=== PATIENT | female | born 1980 | race Caucasian/White ===

== ENCOUNTER 2016-08-21 15:23 | Emergency (ER) | payer BC ==
[2016-08-21 15:41] VITALS: BP 118/88
[2016-08-21] MEDS ORDERED: NAPROXEN SODIUM 550 MG TABLET PO ONE (16:31)
[2016-08-21] MEDS ORDERED: NAPROXEN SODIUM 550 MG TABLET ONE (16:38)
--- OUTSIDE RECORDS SUMMARY | 2016-08-21 16:40 | XMS REPORT | Continuity of Care Document ---
:1980 Author Organization [facility] ([facility]) Address [address] [place] [address] Phone [phone] Care Team Providers Name Role Phone Provider, No-Primary Care Primary Care Provider Unavailable Source Comments This disclosure is being made pursuant to the Care Everywhere program, applicable federal and state laws, and may not contain all informaitonavailable regarding this patient.[facility] ([facility]) Active Allergies and Adverse Reactions Allergen Noted Date Severity Reactions Comments Penicillins 03/10/2011 High Anaphylaxis Current Medications Prescription Sig. Disp. Refills Start Date End Date Status OXYCODONE Take by mouth. Active HCL/ACETAMINOPHEN (PERCOCET PO) oxyCODONE-acetaminophen Take 1-2 Tabs by 20 Tab 0 03/10/2011 Active 5-325 mg per tablet mouth every 6 hours as needed. Indications: Pain Active Problems Problem Noted Date Incisional pain 03/10/2011 Social History Tobacco Use Types Packs/Day Years Used Date Never Assessed Last Filed Vital Signs Vital Sign Reading Time Taken Blood Pressure 137/86 03/10/2011 6:51 PM DATA ENTRY ANALYST Pulse 123 03/10/2011 6:51 PM DATA ENTRY ANALYST Temperature 37.7 C (99.9 F) 03/10/2011 6:51 PM DATA ENTRY ANALYST Respiratory Rate 20 03/10/2011 6:51 PM DATA ENTRY ANALYST Height 1.803 m (5' 11") 03/10/2011 6:51 PM DATA ENTRY ANALYST Weight 104.327 kg (230 lb) 03/10/2011 6:51 PM DATA ENTRY ANALYST Body Mass Index 32.09 03/10/2011 6:51 PM DATA ENTRY ANALYST Oxygen Saturation 98% 03/10/2011 6:51 PM DATA ENTRY ANALYST Plan of Care Health Maintenance Due Date Last Done Comments Hepatitis B Vaccine (1 of 3 - Primary Series) 1980 Tdap Vaccine 07/15/1991 Lipid Disorder Screening 1998 MMR Vaccine 1998 Td Vaccine 1998 Varicella Vaccine (1 of 2 - Adult - No Evidence of 1998 Immunity) Cervical Cancer Screening 2010 Influenza Vaccine: Seasonal (#1) 11/02/2015 Results from Last 3 Months Not on file
--- NOTE | 2016-08-21 16:42 | ERNOTE ---
Back Pain ER HPI Time Seen by Provider: 08/21/16 16:21 Source: patient Exam Limitations: no limitations Immunizations: IMMUNIZATION HX Immunizations Up to Date Yes History of Influenza Vaccine No Allergies/Adverse Reactions: Allergies Penicillins Allergy (Verified 08/21/16 15:36) Anaphylaxis Home Medications: HOME MEDICATIONS Cyclobenzaprine HCl [Flexeril] 10 mg PO TID PRN #30 tab 08/21/16 [Last Taken Unknown] Hydrochlorothiazide [Hydrodiuril] 25 mg PO DAILY 08/21/16 [Last Taken Unknown] Lisinopril [Zestril] 10 mg PO DAILY 08/21/16 [Last Taken Unknown] Naproxen [Naprosyn] 500 mg PO BID #40 tablet 08/21/16 [Last Taken Unknown] Pregabalin [Lyrica] 100 mg PO BID 08/21/16 [Last Taken Unknown] Sertraline HCl [Zoloft] 75 mg PO DAILY 08/21/16 [Last Taken Unknown] Narrative: Patient has neck pain for a couple of days, denies any injury. She has similar pain in 03/2016 after she jerked her neck in a near fall, had xray done in [facility], was treated with pain meds and muscle relaxant and the pain resolved after a few weeks. No injury this time, ibuprofen 400mg is helping some, no other symptoms or neuro deficit. Occasionally the pain shoots into her left arm Timing: Reports: constant Quality/Severity: Reports: moderate Recent Injury?: Reports: no Modifying Factors - (Worsens): Reports: movement to left Review of Systems - Review of Systems Constitutional: Absent: recent illness, fever EYE: Absent: double vision Respiratory: Absent: shortness of breath Cardiology: Absent: chest pain Gastrointestinal/Abdominal: Absent: nausea, vomiting, abdominal pain Genitourinary: Present: no symptoms reported Musculoskeletal: Present: See HPI, neck pain Neurological: Absent: headache, weakness, numbness - Patient's Past Medical History Patient History - Medical: Anxiety, Depression Patient History - Cardiac/Respiratory: Asthma, Hypertension Patient History - Cancer: No Hx of Cancer Patient History - Surgical Procedures: Back Surgery - Social History Living Situations: home Psych History: Hx of Anxiety, Hx of Depression Smoking Status: Current every day smoker Alcohol Use: rarely Drug Use: none - Immunizations Immunizations Up to Date: Yes History of Influenza Vaccine: No Physical Exam - Physical Exam General Appearance: Present: wd/wn, alert, no apparent distress Eye Exam: Normal inspection: bilateral Neck: Present: normal inspection, tender posterior midline, other - decreased range of motion Respiratory: Present: no respiratory distress, normal breath sounds, no accessory muscle use Cardiovascular/Chest: Present: regular rate, rhythm, no murmur Neurological Exam: Present: alert, oriented, normal mood/affect, no motor/ sensory deficits DTR: N=norm/NB=norm/brisk/A=abs/DD=dull/dimin/HC=hyperactive: Bicep (R): Normal , Bicep (L): Normal Skin Exam: Present: normal color, warm/dry ED Progress - Vital Signs Patient's Vital Signs:: I have reviewed the patient's vital signs. Vital Signs: Vital Signs 08/21/16 15:36 Temperature 36.7 C Pulse Rate 134 H Respiratory 18 Rate Blood Pressure 118/88 O2 Sat by Pulse 98 Oximetry - Progress/Reassessment Chief Complaint: Neck Pain/Injury Departure Clinical Impression: Cervical spine pain - Departure Disposition: Home self-care Condition: Good Instructions: Cervical Radiculopathy, [id number] Additional Instructions: call your doctor for follow up after the weekend Referrals: Maryann Mustafa FNP [Primary Care Provider] - Prescriptions: Cyclobenzaprine HCl [Flexeril] 10 mg PO TID PRN #30 tab PRN Reason: MUSCLE SPASMS Naproxen [Naprosyn] 500 mg PO BID #40 tablet
== END 2016-08-21 16:43 | disposition home or self-care (01) ==
LOC: ER 15:23
DX: M54.2 Cervicalgia (principal); F41.8 Other specified anxiety disorders; I10 Essential (primary) hypertension; Z72.0 Tobacco use

== ENCOUNTER 2016-11-02 10:44 | Emergency (ER) | payer BC ==
[2016-11-02] MEDS ORDERED: ORPHENADRINE CITRATE 30 MG/ML VIAL IM ONE (11:03)
[2016-11-02] MEDS ORDERED: KETOROLAC TROMETHAMINE 60 MG/2 ML VIAL IM ONE ×2 (11:03→11:05)
--- NOTE | 2016-11-02 11:03 | ERNOTE ---
Upper Extremity HPI - Narrative Date of Service: 11/02/16 - General Extremities Pain Location: shoulder: right Time Seen by Provider: 11/02/16 11:00 Source: patient, RN notes reviewed Exam Limitations: no limitations - Immun/Allergies/Home Medications Immunizations: IMMUNIZATION HX Immunizations Up to Date Yes History of Influenza Vaccine No Hx Pneumococcal Vaccination No Allergies/Adverse Reactions: Allergies Allergy/AdvReac Type Severity Reaction Status Date / Time Penicillins Allergy Anaphylaxis Verified 11/02/16 10:51 Home Medications: HOME MEDICATIONS Hydrochlorothiazide [Hydrodiuril] 25 mg PO DAILY 08/21/16 [Last Taken Unknown] Lisinopril [Zestril] 10 mg PO DAILY 08/21/16 [Last Taken Unknown] Pregabalin [Lyrica] 100 mg PO BID 08/21/16 [Last Taken Unknown] Sertraline HCl [Zoloft] 75 mg PO DAILY 08/21/16 [Last Taken Unknown] Cyclobenzaprine HCl [Flexeril] 10 mg PO TID PRN #20 tab 11/02/16 [Last Taken Unknown] Ibuprofen [Motrin] 600 mg PO Q6H PRN #40 tab 11/02/16 [Last Taken Unknown] - History of Present Illness Narrative: 36 y/o female to ED by private vehicle with a friend for an injury to her right shoulder. She was lifting on her garage door yesterday when she experienced sudden pain. She reports dislocating the shoulder a few years ago and putting it back in place herself. She believes it is dislocated again. She has been taking Tylenol and ibuprofen for pain without much improvement. Occurred: yesterday Location of Incident: home Associated Symptoms: Denies: tingling, weakness, numbness distally, loss of power (rt arm) Other Injuries: Reports: none Prior Treament: Reports: similar symptoms before. Denies: recently seen Review of Systems - Review of Systems Constitutional: Absent: recent illness, fever, chills EYE: Present: no symptoms reported ENT: Present: no symptoms reported Respiratory: Absent: shortness of breath, cough Cardiology: Absent: chest pain Gastrointestinal/Abdominal: Absent: nausea, vomiting Genitourinary: Absent: other - possible Musculoskeletal: Present: back pain, joint pain. Absent: neck pain, joint swelling Skin: Absent: rash, lesions, lumps Neurological: Absent: weakness, numbness, tingling Endocrine: Present: no symptoms reported Hematologic/Lymphatic: Present: no symptoms reported Psych: Present: no symptoms reported - Patient's Past Medical History Patient History - Medical: Anxiety, Depression Patient History - Cardiac/Respiratory: Asthma, Hypertension Patient History - Cancer: No Hx of Cancer Patient History - Surgical Procedures: Back Surgery - Social History Living Situations: home Abuse History: No History of abuse Psych History: Hx of Anxiety, Hx of Depression Smoking Status: Current every day smoker Have you smoked in the past 12 months: Yes Alcohol Use: rarely Drug Use: none - Immunizations Immunizations Up to Date: Yes Hx Pneumococcal Vaccination: No History of Influenza Vaccine: No Physical Exam - Physical Exam General Appearance: Present: wd/wn, alert, mild distress Head Exam: Present: normal inspection, no evidence of injury Respiratory: Present: no respiratory distress, normal breath sounds, no accessory muscle use, lungs clear Cardiovascular/Chest: Present: regular rate, rhythm, no murmur Extremity Exam: Present: normal inspection, no edema, decreased range of motion - Right shoulder, other - diffuse tenderness with palpation of right shoulder. Absent: joint redness, joint swelling Neurological Exam: Present: alert, oriented, normal mood/affect, no motor/ sensory deficits Skin Exam: Present: normal color, warm/dry ED Progress - Vital Signs Patient's Vital Signs:: I have reviewed the patient's vital signs. Vital Signs: Vital Signs 11/02/16 11/02/16 10:48 11:00 Temperature 35.4 C L Pulse Rate 133 H 136 H Respiratory 16 Rate Blood Pressure 152/118 139/86 O2 Sat by Pulse 98 97 Oximetry - X-Ray X-Ray #1 X-Ray: shoulder - Right Interpretation: Reviewed by me X-ray Comments: No acute osseous abnormality - Progress/Reassessment Chief Complaint: Shoulder Injury/Pain Progress:: Improved Departure Clinical Impression: Sprain of shoulder, right Qualifiers: Encounter type: initial encounter Shoulder sprain type: unspecified sprain Qualified Code(s): S43.401A - Unspecified sprain of right shoulder joint, initial encounter - Departure Disposition: Home Follow Up Needed Condition: Stable Instructions: Shoulder Sprain Additional Instructions: Ice to sore area Gently range of motion but avoid strenuous activity for now Contact orthopedics for follow up if you have not had significant improvement by Curly Referrals: Markie Carpenter, PAC [[facility]] - Prescriptions: Cyclobenzaprine HCl [Flexeril] 10 mg PO TID PRN #20 tab PRN Reason: MUSCLE SPASMS Ibuprofen [Motrin] 600 mg PO Q6H PRN #40 tab PRN Reason: Pain
[2016-11-02] MEDS ORDERED: ORPHENADRINE CITRATE 30 MG/ML VIAL ONE (11:05)
--- OUTSIDE RECORDS SUMMARY | 2016-11-02 11:06 | XMS REPORT | Clinical Summary ---
:1980 Author Organization [facility] [place] [address] Care Team Providers Name Role Phone Unavailable Primary Care Provider Unavailable Source Comments This disclosure is being made pursuant to the Stor[employer] program and maynot contain all information available regarding this patient.[facility] Allergies Active Allergy Reactions Severity Noted Date Comments Penicillins Anaphylaxis High 10/29/2016 Current Medications Be aware that medications may not be up to date as of this document. Alwaysverify current medications with the patient. Prescription Sig. Disp. Refills Start Date End Date Status hydrochlorothiazide TK 1 T PO QD 1 10/26/2016 Active (HYDRODIURIL) 12.5 MG tablet lisinopril TK 1 T PO QD 1 10/26/2016 Active (PRINIVIL,ZESTRIL) 10 MG tablet sertraline (ZOLOFT) 50 MG Take 75 mg by 3 09/30/2016 Active tablet mouth daily. LYRICA 100 MG capsule TK 1 C PO BID 4 10/07/2016 Active clindamycin (CLEOCIN) 300 Take 1 30 capsule 0 10/29/2016 11/08/2016 Active MG capsule by capsuleIndications:Tooth mouth 3 abscess (three) times daily for 10 days. 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 Dx) from Last 3 Months Social History Tobacco Use Types Packs/Day Years Used Date Current Every Day Smoker Smokeless Tobacco: Never Used Tobacco Cessation:Ready to Quit: No; Counseling Given: Yes Sex Assigned at Date Recorded Not on file Last Filed Vital Signs Vital Sign Reading Time Taken Blood Pressure 128/88 10/29/2016 10:53 AM CDT Pulse 88 10/29/2016 10:53 AM CDT Temperature 36.6 C (97.8 F) 10/29/2016 10:53 AM CDT Respiratory Rate 20 10/29/2016 10:53 AM CDT Oxygen Saturation 98% 10/29/2016 10:53 AM CDT Inhaled Oxygen Concentration - - Weight 131.5 kg (290 lb) 10/29/2016 10:53 AM CDT Height 180.3 cm (5' 11") 10/29/2016 10:53 AM CDT Body Mass Index 40.45 10/29/2016 10:53 AM CDT Plan of Treatment Health Maintenance Due Date Last Done Comments Pneumococcal Medium Risk 19-64 yo (1 of 1 - PPSV23) 07/15/1999 Tetanus/Pertussis (1 - Tdap) 07/15/1999 Pap Smear 2001 INFLUENZA IMMUNIZATION (#1) 2016 Results Not on filefrom Last 3 Months Insurance Payer Benefit Plan / Group Subscriber ID Type Phone Address [facility] [id number] [address] [place] [address] [id number] [place] [address]
--- OUTSIDE RECORDS SUMMARY | 2016-11-02 11:06 | XMS REPORT | Encounter Summary ---
:1980 Author Organization [facility] [place] [address] Care Team Providers Name Role Phone Unavailable Primary Care Provider Unavailable Reason for Visit Reason Comments Sinusitis Sx started this am. R side of face swollen. Jaw hurting. Dental Pain Started this am. R side painful and swollen. Encounter Details Date Type Department Care Team Description 10/29/2016 Office Visit [facility] Lb Saldivar Tooth abscess (Primary KATLIN Yao Dx) [address] [place] [id number] [place] [address] [phone] Social History Tobacco Use Types Packs/Day Years Used Date Current Every Day Smoker Smokeless Tobacco: Never Used Tobacco Cessation:Ready to Quit: No; Counseling Given: Yes Sex Assigned at Date Recorded Not on file as of this encounter Last Filed Vital Signs Vital Sign Reading [...] Mass Index 40.45 10/29/2016 10:53 AM CDT in this encounter Progress Notes Nicko Miles DO - 10/29/2016 10:35 AM CDTI was the collaborating physicians for this encounter. Kaelyn Garcia Jamey L, ARNP - 10/29/2016 10:35 AM CDTFormatting of this note may be different from the original. Subjective: Patient ID: Rashad Magaña is a 36 y.o. female. 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 The current episode started today. The problem has been gradually worsening since onset. There has been no fever. Her pain is at a severity of 7/10. The pain is moderate. Associated symptoms include headaches. Past treatments include acetaminophen. The treatment provided no relief. Dental Pain This is a new problem. The current episode started today. The problem occurs constantly. The problem has been gradually worsening. The pain is at a severity of 7/10. The pain is moderate. Associated symptoms include facial pain. She has tried acetaminophen for the symptoms. The treatment provided no relief. Patient's problem list, medications, allergies, past medical, surgical, social and family histories were reviewed and updated as appropriate. Review of Systems Neurological: Positive for headaches. Objective: BP 128/88 (BP Location: [facility], [place] Position: sitting, BP Cuff Size: Reg) | Pulse 88 | Temp 36.6 C (97.8 F) (Tympanic) | Resp 20 | Ht 1.803 m (5' 11") | Wt 131.5 kg (290 lb) | SpO2 98% | BMI 40.45 kg/m Body mass index is 40.45 kg/m. Physical Exam Constitutional: She is oriented to person, place, and time. She appears well- developed and well-nourished. HENT: Right Ear: Tympanic membrane normal. Left Ear: Tympanic membrane normal. Nose: No mucosal edema. Right sinus exhibits maxillary sinus tenderness. Mouth/Throat: Oropharynx is clear and moist and mucous membranes are normal. Abnormal dentition. Dental abscesses (top back right last three teeth) and dental caries present. Pulmonary/Chest: Effort normal. Neurological: She is alert and oriented to person, place, and time. Skin: Skin is warm and dry. Assessment/Orders: Diagnoses and all orders for this visit: Tooth abscess - clindamycin (CLEOCIN) 300 MG capsule; Take 1 capsule by mouth 3 (three) times daily for 10 days. - ketorolac tromethamine (TORADOL) injection; Inject 2 mLs into the muscle once. Plan: Follow up with primary care provider if symptoms fail to improve. in this encounter Plan of Treatment Not on fileas of this encounter Visit Diagnoses Diagnosis Tooth abscess - Primary Periapical abscess without sinus in this encounter Administered Medications Medication Order MAR Action Action Date Dose Rate Site ketorolac tromethamine Given 10/29/2016 11:29 CDT 60 mg Left Dorsogluteal (TORADOL) injection 60 mg, Intramuscular, ONCE, 10/29/16 at 1130, For 1 dose in this encounter
--- OUTSIDE RECORDS SUMMARY | 2016-11-02 11:07 | XMS REPORT | Summary of Care ---
:1980 Author Organization [facility] Address [address] [place] [address] Care Team Providers Name Role Phone Maryann Mustafa Primary Care Physician Encounter Date(s): 08/12/16 - 08/12/16 [facility] [address], [address] [place], [place] [address] Discharge Disposition: Discharged to Home or Self Care Attending Physician: Kenrick Farooq MD Referring Physician: Kenrick Farooq MD Vital Signs No data available for this section Problem List No data available for this section Allergies, Adverse Reactions, Alerts Substance Reaction Severity Status penicillin Anaphylaxis Active Medications gabapentin 300 mg oral capsule TK 4 CS PO TID Special Instructions: TK 4 CS PO TID Start Date: 01/27/16 Stop Date: 03/08/16 Status: Discontinuedgabapentin 300 mg oral capsule 3 cap(s), Oral, TID, 0 Refill(s), Start Date: 10/01/14 10:19:00 CDT Start Date: 10/01/14 Stop Date: 01/27/16 Status: CompletedLyrica 75 mg oral capsule 1 cap(s), Oral, BID, # 60 cap(s), 3 Refill(s), Start Date: 02/03/16 15:42:16 CDT , called to pharmacy (Rx) Start Date: 02/03/16 Stop Date: 03/08/16 Status: DiscontinuedLyrica 75 mg oral capsule 1 cap(s), Oral, BID, # 60 cap(s), 0 Refill(s), Start Date: 01/27/16 10:09:00 CDT Start Date: 01/27/16 Stop Date: 02/03/16 Status: Completednabumetone 750 mg oral tablet TK 1 T PO BID Special Instructions: TK 1 T PO BID Start Date: 01/27/16 Status: Orderednabumetone 750 mg oral tablet 1 tab(s), Oral, BID, 0 Refill(s), Start Date: 10/01/14 10:20:00 CDT Start Date: 10/01/14 Stop Date: 01/27/16 Status: Completedoxymorphone 30 mg oral tablet, extended release 1 tab(s), Oral, q12hr interval, 0 Refill(s), Start Date: 10/01/14 10:19:00 CDT Start Date: 10/01/14 Stop Date: 01/27/16 Status: Completedpregabalin 100 mg oral capsule 1 cap(s), Oral, BID, # 60 cap(s), 0 Refill(s), Start Date: 06/06/16 12:24:24 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 , called to pharmacy (Rx) Start Date: 06/06/16 Stop Date: 08/12/16 Status: Completedpregabalin 100 mg oral capsule 1 cap(s), Oral, BID, # 60 cap(s), 2 Refill(s), Start Date: 03/08/16 14:15:00 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 , called to pharmacy (Rx) Start Date: 03/08/16 Stop Date: 06/06/16 Status: Completedpregabalin 100 mg oral capsule 1 cap(s), Oral, BID, # 180 cap(s), 4 Refill(s), Start Date: 08/12/16 9:13:58 CDT , called to pharmacy (Rx) Start Date: 08/12/16 Status: Ordered Results No data available for this section Immunizations No data available for this section Procedures Procedure Date Related Diagnosis Body Site Tonsillectomy And Adenoidectomy1 10/06/14 Decompression Laminectomy2 Spinal Fusion-lumbar3 1auto-populated from documented surgical [id number] S1 2010 x2 procedures ALIF and PSF Social History No data available for this section Assessment and Plan No data available for this section
--- OUTSIDE RECORDS SUMMARY | 2016-11-02 11:07 | XMS REPORT | Summary of Care ---
:1980 Author Organization [facility] Address [address] [place] [address] Care Team Providers Name Role Phone Maryann Mustafa Primary Care Physician Encounter Date(s): 08/12/16 - 08/12/16 [facility] [address] [place], [place] [address] Discharge Diagnosis: Fibromyalgia Discharge Disposition: 01 Discharged to Home or Self Care Attending Physician: Kenrick Farooq MD Referring Physician: KRISSY Priest Vital Signs Most recent to oldest [Reference Range]: 1 Peripheral Pulse Rate [60-100 bpm] 125 bpm *HI* (08/12/16 9:02 AM) Blood Pressure [90-130/60-90 mmHg] 138/89mmHg *HI* (08/12/16 9:02 AM) Mean Arterial Pressure, Cuff 105 mmHg (08/12/16 9:02 AM) Most recent to oldest [Reference Range]: 1 Height/Length Measured 180 cm (08/12/16 9:02 AM) Weight Dosing 124.90 kg1 (08/12/16 9:03 AM) Weight Measured 124.9 kg (08/12/16 9:02 AM) BSA Measured 2.41 m2 (08/12/16 9:02 AM) Body Mass Index Measured 38.55 kg/m2 (08/12/16 9:02 AM) 1Result Comment: This result was because the dosing weight was either not entered or it is>30 days old. 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
[2016-11-02 12:05] VITALS: BP 109/78
== END 2016-11-02 12:15 | disposition home or self-care (01) ==
LOC: ER 10:44
DX: S43.401A Unspecified sprain of right shoulder joint, initial encounter (principal); X50.0XXA Overexertion from strenuous movement or load, initial encounter; Y93.89 Activity, other specified; Y92.008 Other place in unspecified non-institutional (private) residence as the place of occurrence of the external cause; F41.8 Other specified anxiety disorders; I10 Essential (primary) hypertension; F17.200 Nicotine dependence, unspecified, uncomplicated